=== PATIENT | female | born 1965 | race Caucasian/White ===

== ENCOUNTER 2016-08-05 16:15 | Emergency (ER) | payer SELFPAY ==
[2016-08-05] MEDS ORDERED: TORAdol 30 mg Injection ONE (16:51)
--- NOTE | 2016-08-05 16:55 | ERPHSYRPT ---
- History of Present Illness Time Seen by Provider: 08/05/16 16:32 Source: patient Patient Subjective Stated Complaint: pt fell at home and hit head on foot stool. pt c/o pain to the back of the head and neck. Triage Nursing Assessment: pt walked into the er. skin is pink warm and dry. respirations even and nonlabored. neck is tender to touch, no bruises nor swelling noted. Physician History: CC: headache hx: 50 y/o patient tripped at home on the dog and fell back hitting her head on a step stool. No LOC. She has headache, photophobia, neck pain gradually worsening despite APAP/motrin. She has remote hx of migraines formerly treated with phenergan/dilaudid. Prior hysterectomy. She feels like when migraines occured. This started with injury. Occurred: this afternoon Allergies/Adverse Reactions: Penicillins Adverse Reaction (Severe, Verified 11/13/15 15:24) Tightness of Throat Hx Tetanus, Diphtheria Vaccination/Date Given: Yes Hx Influenza Vaccination/Date Given: No Hx Pneumococcal Vaccination/Date Given: No Immunizations Up to Date: Yes - Review of Systems Constitutional: No Symptoms Eyes: Photophobia, No Vision Changes Respiratory: No Cough Cardiac: No Chest Pain Abdominal/Gastrointestinal: Nausea, No Abdominal Pain, No Vomiting Musculoskeletal: Neck Pain, Fall, No Back Pain Skin: No Rash Neurological: Headache, No Focal Weakness, No Parasthesia All Other Systems: Reviewed and Negative - Past Medical History Pertinent Past Medical History: No Neurological History: No Pertinent History ENT History: No Pertinent History Cardiac History: Hypertension Respiratory History: No Pertinent History Endocrine Medical History: No Pertinent History Musculoskeletal History: Arthritis GI Medical History: No Pertinent History History: No Pertinent History Psycho-Social History: No Pertinent History Female Reproductive Disorders: No Pertinent History - Past Surgical History Past Surgical History: Yes Neuro Surgical History: No Pertinent History Cardiac: No Pertinent History Respiratory: No Pertinent History Gastrointestinal: Cholecystectomy Female Surgical History: Hysterectomy Other Surgical History: Hernia surgery, - Social History Smoking Status: Never smoker Exposure to second hand smoke: No Drug Use: none Patient Lives Alone: Yes - Nursing Vital Signs Nursing Vital Signs: Initial Vital Signs Temperature 98.9 F Pulse Rate 78 Respiratory Rate 20 Blood Pressure [Right Arm] 153/96 Pain Intensity 7 - Kumar Coma Score Best Eye Response ([place]): (4) open spontaneously Best Verbal Response (Kumar): (5) oriented Best Motor Response (Kumar): (6) obeys commands [place] Total: 15 - Physical Exam General Appearance: alert Head Injury: no evidence of injury Eye Exam: PERRL/EOMI ENT Exam: airway nml Neck Exam: mid-line tenderness (high) Respiratory/Chest Exam: normal breath sounds Cardiovascular Exam: regular rate/rhythm Gastrointestinal Exam: soft, No tenderness, No distention Extremity Exam: normal inspection, normal range of motion Neurologic Exam: alert, oriented x 3, cooperative, debt collector II-XII nml as tested, sensation nml, No motor deficits Skin Exam: warm, dry, No rash SpO2 Interpretation: normal SpO2: 98 Oxygen Delivery: Room Air - Course Nursing assessment & vital signs reviewed: Yes - CT Exams head,cervical CT Interpretation: Tele-radiologist Report, No Fracture, No/Intracranial Hemorrhag Ordered Tests: Active Orders 24 hr Category Date Time Status Cervical Collar Application STAT Care 08/05/16 16:33 Active CERVICAL SPINE WO CONTRAST [CT] Stat Exams 08/05/16 16:44 Completed HEAD WITHOUT CONTRAST [CT] Stat Exams 08/05/16 16:44 Completed Medication Summary Discontinued Medications Generic Name Dose Route Start Last Admin Trade Name Freq PRN Reason Stop Dose Admin Ketorolac Tromethamine 60 mg 08/05/16 16:43 08/05/16 17:09 Toradol 30 Mg Injection IM 08/05/16 16:44 Not Given STAT ONE Ketorolac Tromethamine Confirm 08/05/16 16:51 Toradol 30 Mg Injection Administered 08/05/16 16:52 Dose 60 mg .ROUTE .[employer]-MED ONE - Progress Progress Note: 08/05/16 17:13 She was offered reglan and benadryl. She wanted to try toradol. Then told nurse she was allergic to toradol. Offered phenergan IM. She declined. Await CT. 08/05/16 17:23 Pt wanted c-collar off. Discussed NSAID treatment. Will also Rx norflex. She inquired about ultram or dilaudid but explained these are not indicated. Counseled pt/family regarding: diagnosis, need for follow-up, rad results - Departure Time of Disposition: 17:24 Departure Disposition: Home Clinical Impression: Fall, Cervical strain, Head contusion Condition: Stable Critical Care Time: No Referrals: DOCTOR,NO FAMILY [Primary Care Provider] - Instructions: Closed Head Injury, Cervical Strain Additional Instructions: CERVICAL (NECK) STRAIN 1. Take medication as prescribed for discomfort. 2. Use warm compresses for 1-2 days on the affected area. 3. Follow up with your family physician if not improved in 2-3 days. 4. You should call your family physician or return to the emergency department for any numbness, tingling, or weakness of the arms or legs. HEAD INJURY 1. A responsible person should observe the patient at home for 24 hours. 2. If any of the following signs or symptoms are observed or occur, call your family physician or return to the emergency department: A. Behavior change B. Persistent vomiting C. Unequal pupils D. Increasing drowsiness E. Difficulty in arousing the patient F. Severe headache G. Lump on head increasing in size Rx motrin=ibuprofen Rx norflex- no driving or operating machinery. Follow up with a family doctor. Return for problems or concerns. Prescriptions: Ibuprofen 600 mg PO Q6H PRN PRN #20 tablet PRN Reason: Pain Orphenadrine Citrate 100 mg [Norflex 100 MG Tablet] 1 tab PO BID #10 tab
[2016-08-05] MEDS: TORAdol 30 mg Injection IM ONE ×2 (17:02→17:09)
[2016-08-05 17:06] VITALS: PULSE 78
[2016-08-05 17:13] VITALS: O2SAT 98
--- NOTE | 2016-08-05 17:18 | XRAY ---
Indication: Pain and posterior head injury following fall. Multiple contiguous axial images obtained through the head without contrast. Comparison: None Normal appearing brain parenchyma, ventricles, and bony calvarium. Visualized paranasal sinuses and mastoid air cells are pneumatized and clear. Impression: Normal CT head without contrast exam. CTDI 48.76
--- NOTE | 2016-08-05 17:21 | XRAY ---
Indication: Pain and head injury following fall. Multiple contiguous axial images obtained through the cervical spine. Sagittal and coronal reformatted images obtained. Comparison: None Axial images negative for acute fracture, suspicious bony lesions, or spinal canal stenosis. Mild C5-C6 degenerative endplate spurring. Minimal multilevel bilateral degenerative facet arthropathy. Sagittal and coronal reformatted images demonstrates mild lordotic reversal, positional versus paraspinal muscular spasm. Disc spaces maintained. No acute compression fracture, subluxation, or jump facet. Normal-appearing craniocervical junction. Visualized noncontrasted soft tissues demonstrates scattered centimeter/subcentimeter cervical nodes. Base of the brain and lung apices unremarkable. Impression: 1. Negative for acute fracture/subluxation. 2. Lordotic reversal, either positional versus paraspinal spasm. 3. C5-C6 degenerative disc disease. CTDI 59.60
[2016-08-05 17:36] VITALS: BP 176/101
== END 2016-08-05 17:37 | disposition home or self-care (01) ==
LOC: ED 16:15
DX: S16.1XXA Strain of muscle, fascia and tendon at neck level, initial encounter (principal); S00.93XA Contusion of unspecified part of head, initial encounter; R11.0 Nausea; R51 Headache; M54.2 Cervicalgia; I10 Essential (primary) hypertension; W01.198A Fall on same level from slipping, tripping and stumbling with subsequent striking against other object, initial encounter
CPT/HCPCS: 70450; 72125; 99283; J1885; L0172

== ENCOUNTER 2019-05-28 18:37 | Emergency (ER) | payer MEDICARE, OTHER ==
[2019-05-28 18:54] VITALS: O2SAT 98
[2019-05-28] MEDS ORDERED: Hydromorphone 1 mg/ml Ampule IM ONE (19:19)
[2019-05-28] MEDS ORDERED: ZOFRAN ODT 4 MG PO ONE (19:20)
--- NOTE | 2019-05-28 19:37 | ERPHSYRPT ---
- History of Present Illness Time Seen by Provider: 05/28/19 19:10 Source: patient Exam Limitations: no limitations Patient Subjective Stated Complaint: pt here for chronic right knee pain and recent right foot pain, she states she fell 2 weeks ago and hurt her right foot and has been cec[place] x2 and placed in a walking boot, pt sees pain dr for chronic pain and states meds are not helping Triage Nursing Assessment: pt alert, walked in with walker. walking boot to right leg resp easy skin w/d/p Physician History: 53 y/o morbidly obese white female presents with chronic right knee and post ankle pain. 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 pts current pain regimen of norco and ice pack not helping much. she was wondering if pt can receive a one time injection of strong pain medication in order to get her through the night until she can discuss other pain control options with her pain specialist. pt reports xray of right knee and ankle reveals no acute fx or dislocation Method of Injury: twisted Occurred: other (chronic) Quality: aching Severity of Pain-Max: moderate Severity of Pain-Current: moderate Lower Extremities Pain: thigh: right, ankle: right Modifying Factors: Improves With: movement Associated Symptoms: other (hurts to bear weight) Allergies/Adverse Reactions: ceftriaxone [From Rocephin] Allergy (Verified 05/28/19 18:54) vancomycin Allergy (Verified 05/28/19 18:54) Penicillins Adverse Reaction (Severe, Verified 11/13/15 15:24) Tightness of Throat Home Medications: Amlodipine Besylate 1 ea DAILY 05/28/19 [History] Empagliflozin [Jardiance] 1 ea DAILY 05/28/19 [History] Hydrocodone/Acetaminophen [Hydrocodone-Acetamin 5-325 mg] 1 ea BID 05/28/19 [ History] lisinopriL [Lisinopril] 1 ea DAILY 05/28/19 [History] Hx Tetanus, Diphtheria Vaccination/Date Given: Yes Hx Influenza Vaccination/Date Given: Yes Hx Pneumococcal Vaccination/Date Given: Yes Immunizations Up to Date: Yes - Review of Systems Constitutional: No Symptoms Eyes: No Symptoms Ears, Nose, & Throat: No Symptoms Respiratory: No Symptoms Cardiac: No Symptoms Abdominal/Gastrointestinal: No Symptoms Genitourinary Symptoms: No Symptoms Musculoskeletal: No Symptoms, Other (chronic right knee and right ankle) Skin: No Symptoms Neurological: No Symptoms Psychological: No Symptoms Endocrine: No Symptoms Hematologic/Lymphatic: No Symptoms Immunological/Allergic: No Symptoms All Other Systems: Reviewed and Negative - Past Medical History Pertinent Past Medical History: Yes Neurological History: No Pertinent History ENT History: No Pertinent History Cardiac History: Hypertension Respiratory History: No Pertinent History Endocrine Medical History: Diabetes Type II Musculoskeletal History: Arthritis GI Medical History: No Pertinent History History: No Pertinent History Psycho-Social History: No Pertinent History Female Reproductive Disorders: No Pertinent History Other Medical History: chronic pain - Past Surgical History Past Surgical History: Yes Neuro Surgical History: No Pertinent History Cardiac: No Pertinent History Respiratory: No Pertinent History Gastrointestinal: Cholecystectomy Musculoskeletal: Orthopedic Surgery Female Surgical History: Hysterectomy Other Surgical History: Hernia surgery,carpal tunnel,knee bilat - Social History Smoking Status: Never smoker Exposure to second hand smoke: No Drug Use: none Patient Lives Alone: Yes - Female History Hx Last Menstrual Period: post Hx Now: No - Nursing Vital Signs Nursing Vital Signs: Initial Vital Signs Temperature 97.4 F 05/28/19 18:46 Pulse Rate 93 H 05/28/19 18:46 Respiratory Rate 16 05/28/19 18:46 Blood Pressure 180/80 05/28/19 18:46 O2 Sat by Pulse Oximetry 98 05/28/19 18:46 Pain Scale Pain Intensity 8 - Physical Exam General Appearance: no apparent distress, alert, anxiety Eyes, Ears, Nose, Throat Exam: normal ENT inspection, moist mucous membranes Neck Exam: normal inspection, non-tender, supple, full range of motion Cardiovascular/Respiratory Exam: chest non-tender Gastrointestinal/Abdominal Exam: non-tender Back Exam: normal inspection, normal range of motion, No CVA tenderness, No vertebral tenderness Hips Exam: bilateral: non-tender, normal inspection, normal range of motion, no evidence of injury Legs Exam: bilateral leg: non-tender, normal inspection, normal range of motion , no evidence of injury Knees Exam: bilateral knee: non-tender, normal inspection, normal range of motion, no evidence of injury Ankle Exam: bilateral ankle: non-tender, normal inspection, normal range of motion, no evidence of injury Foot Exam: bilateral foot: non-tender, normal inspection, normal range of motion , no evidence of injury Neuro/Tendon Exam: normal sensation, normal motor functions, normal tendon functions Mental Status Exam: alert, oriented x 3, cooperative Skin Exam: normal color, warm, dry SpO2 Interpretation: normal SpO2: 98 O2 Delivery: Room Air - Course Nursing assessment & vital signs reviewed: Yes Ordered Tests: Medication Summary Discontinued Medications Generic Name Dose Route Start Last Admin Trade Name Miriam PRN Reason Stop Dose Admin Hydromorphone HCl 1 mg 05/28/19 19:19 Hydromorphone 1 Mg/Ml Ampule IM 05/28/19 19:20 STAT ONE Ondansetron HCl 4 mg 05/28/19 19:20 Zofran Odt 4 Mg PO 05/28/19 19:21 STAT ONE - Progress Progress: improved Counseled pt/family regarding: diagnosis, need for follow-up - Departure Departure Disposition: Home Clinical Impression: Knee pain, right, Ankle pain, right Condition: Stable Critical Care Time: No Referrals: KENDALL RAMOS MD [Primary Care Provider] - Additional Instructions: follow up with primary doctor, pain specialist and plastic sheeting cutter for further management
[2019-05-28] MEDS ORDERED: ZOFRAN ODT 4 MG ONE (19:50)
[2019-05-28] MEDS ORDERED: Hydromorphone 1 mg/ml Ampule ONE (19:51)
[2019-05-28 20:18] VITALS: BP 172/72; PULSE 89
== END 2019-05-28 20:15 | disposition home or self-care (01) ==
LOC: ED 18:37
DX: M25.561 Pain in right knee (principal); M25.571 Pain in right ankle and joints of right foot; G89.29 Other chronic pain; F45.42 Pain disorder with related psychological factors
CPT/HCPCS: 96372; 99283; J1170; Q0162

== ENCOUNTER 2021-03-11 07:16 | Day surgery (SDC) | payer MEDICARE ==
[2021-03-11] MEDS ORDERED: ORTHOVISC IU ONE (07:17)
[2021-03-11] MEDS ORDERED: DIPRIVAN 200 MG/20 ML IV ONE (08:42)
[2021-03-11] MEDS ORDERED: Lactated Ringers 1,000 ML IV ONE (09:55)
--- NOTE | 2021-03-11 09:58 | XRAY ---
Indication: Right knee injection NASIM. Intraoperative fluoroscopy provided for 9 seconds. Single digital spot image submitted for interpretation demonstrates needle tip projecting over the right femur intercondylar notch. Small amount of contrast injected for needle tip placement. Correlate with intraoperative findings/report.
--- NOTE | 2021-03-11 10:07 | XRAY ---
9 seconds fluoroscopy time in surgery for intra-articular injection of the right knee.
== END 2021-03-11 09:11 | disposition home or self-care (01) ==
LOC: SDC-PAIN 07:16
PROVIDERS: ATTEND Psychiatry & Neurology Pain Medicine
DX: M17.11 Unilateral primary osteoarthritis, right knee (principal); E11.9 Type 2 diabetes mellitus without complications; I10 Essential (primary) hypertension; F32.9 Major depressive disorder, single episode, unspecified; Z79.899 Other long term (current) drug therapy
CPT/HCPCS: 20610; 73560; 77002; 82947; J2704; Q9966; J7324

== ENCOUNTER 2021-03-18 10:00 | Day surgery (SDC) | payer MEDICARE ==
[2021-03-18] MEDS ORDERED: ORTHOVISC IU ONE (10:01)
[2021-03-18] MEDS ORDERED: LIDOCAINE HCL 2% 100 MG/5 ML IJ ONE (10:01)
[2021-03-18] MEDS ORDERED: Ketamine HCl 50 MG/ML IV ONE (10:01)
[2021-03-18] MEDS ORDERED: DIPRIVAN 200 MG/20 ML IV ONE (10:44)
[2021-03-18] MEDS ORDERED: Lactated Ringers 1,000 ML IV ONE (11:38)
--- NOTE | 2021-03-18 12:39 | XRAY ---
11 seconds fluoroscopy time in surgery for intra-articular injection of the right hip.
--- NOTE | 2021-03-18 12:47 | XRAY ---
Indication: Right knee injection. Intraoperative fluoroscopy provided for 11 seconds. Single digital spot image submitted for interpretation demonstrates needle tip projecting over the right femur intercondylar notch. Small amount of contrast injected for needle tip placement. Correlate with intraoperative findings/report.
== END 2021-03-18 11:15 | disposition home or self-care (01) ==
LOC: SDC-PAIN 10:00
PROVIDERS: ATTEND Psychiatry & Neurology Pain Medicine
DX: M17.11 Unilateral primary osteoarthritis, right knee (principal); Z79.891 Long term (current) use of opiate analgesic; E11.8 Type 2 diabetes mellitus with unspecified complications; Z79.84 Long term (current) use of oral hypoglycemic drugs; Z79.4 Long term (current) use of insulin
CPT/HCPCS: 20610; 73560; 77002; 82947; J2704; Q9966; J7324

== ENCOUNTER 2021-04-15 10:35 | Day surgery (SDC) | payer MEDICARE ==
[2021-04-15] MEDS ORDERED: ORTHOVISC IU ONE (10:36)
[2021-04-15] MEDS ORDERED: DIPRIVAN 200 MG/20 ML IV ONE (12:51)
[2021-04-15] MEDS ORDERED: Lactated Ringers 1,000 ML IV ONE (13:01)
--- NOTE | 2021-04-15 14:49 | XRAY ---
Indication: Right knee injection. Intraoperative fluoroscopy provided for 6 seconds. Single digital spot image submitted for interpretation demonstrates needle tip projecting over the right femur intercondylar notch. Small amount of contrast injected for needle tip placement. Correlate with intraoperative findings/report.
--- NOTE | 2021-04-15 17:02 | XRAY ---
6 seconds fluoroscopy time in surgery for right knee injection.
== END 2021-04-15 13:15 | disposition home or self-care (01) ==
LOC: SDC-PAIN 10:35
PROVIDERS: ATTEND Psychiatry & Neurology Pain Medicine
DX: M17.11 Unilateral primary osteoarthritis, right knee (principal); E11.9 Type 2 diabetes mellitus without complications; I10 Essential (primary) hypertension; Z79.899 Other long term (current) drug therapy
CPT/HCPCS: 20610; 73560; 77002; 82947; J2704; Q9966; J7324

== ENCOUNTER 2021-05-20 09:25 | Day surgery (SDC) | payer MEDICARE ==
[2021-05-20] MEDS ORDERED: Depo-Medrol 40 MG/ML IM ONE (09:26)
[2021-05-20] MEDS ORDERED: BUPIVACAINE 0.5% VIAL IJ ONE (09:26)
[2021-05-20] MEDS ORDERED: Lactated Ringers 1,000 ML IV ONE (11:01)
[2021-05-20] MEDS ORDERED: DIPRIVAN 200 MG/20 ML IV ONE (11:17)
--- NOTE | 2021-05-20 13:54 | XRAY ---
Indication: Right knee injection. Intraoperative fluoroscopy provided for 7 seconds. Single digital spot image submitted for interpretation demonstrates needle tip projecting over the right femur intercondylar notch. Small amount of contrast injected for needle tip placement. Correlate with intraoperative findings/report.
--- NOTE | 2021-05-20 13:58 | XRAY ---
7 seconds of fluoroscopy was used in surgery for a right intra-articular knee injection.
== END 2021-05-20 11:42 | disposition home or self-care (01) ==
LOC: SDC-PAIN 09:25
PROVIDERS: ATTEND Psychiatry & Neurology Pain Medicine
DX: M17.11 Unilateral primary osteoarthritis, right knee (principal); E11.9 Type 2 diabetes mellitus without complications; I10 Essential (primary) hypertension; Z79.899 Other long term (current) drug therapy
CPT/HCPCS: 20610; 73560; 77002; 82947; J1030; J2704; Q9966

== ENCOUNTER 2021-10-21 08:34 | Day surgery (SDC) | payer MEDICARE ==
[2021-10-21] MEDS ORDERED: ORTHOVISC IU ONE (08:35)
[2021-10-21] MEDS ORDERED: DIPRIVAN 200 MG/20 ML IV ONE (09:44)
[2021-10-21] MEDS ORDERED: Lactated Ringers 1,000 ML IV ONE (10:04)
--- NOTE | 2021-10-21 10:49 | XRAY ---
6 seconds fluoroscopy time in surgery for intra-articular injection of the right knee.
== END 2021-10-21 11:08 | disposition home or self-care (01) ==
LOC: SDC-PAIN 08:34
PROVIDERS: ATTEND Psychiatry & Neurology Pain Medicine
DX: M17.11 Unilateral primary osteoarthritis, right knee (principal); E11.9 Type 2 diabetes mellitus without complications; Z79.899 Other long term (current) drug therapy
CPT/HCPCS: 20610; 73560; 77002; 82947; J2704; Q9966; J7324

== ENCOUNTER 2021-10-28 08:46 | Day surgery (SDC) | payer MEDICARE ==
[2021-10-28] MEDS ORDERED: ORTHOVISC IU ONE (08:47)
[2021-10-28] MEDS ORDERED: DIPRIVAN 200 MG/20 ML IV ONE (10:10)
[2021-10-28] MEDS ORDERED: Lactated Ringers 1,000 ML IV ONE (11:33)
--- NOTE | 2021-10-28 13:48 | XRAY ---
Indication: Intra-articular right knee injection. Intraoperative fluoroscopy provided for 4 seconds. Single spot image submitted for interpetation demonstrates needle tip projecting over the right intercondylar notch. Small amount of contrast injected for needle tip placement. Correlate with intraoperative findings/report.
--- NOTE | 2021-10-29 18:30 | XRAY ---
4 seconds fluoroscopy time in surgery for intra-articular injection of the right knee.
== END 2021-10-28 10:32 | disposition home or self-care (01) ==
LOC: SDC-PAIN 08:46
PROVIDERS: ATTEND Psychiatry & Neurology Pain Medicine
DX: M17.11 Unilateral primary osteoarthritis, right knee (principal); E11.9 Type 2 diabetes mellitus without complications; Z79.899 Other long term (current) drug therapy
CPT/HCPCS: 20610; 73560; 77002; 82947; J2704; Q9966; J7324

== ENCOUNTER 2021-11-04 06:56 | Day surgery (SDC) | payer MEDICARE ==
[2021-11-04] MEDS ORDERED: ORTHOVISC IU ONE (06:57)
[2021-11-04] MEDS ORDERED: DIPRIVAN 200 MG/20 ML IV ONE (08:31)
[2021-11-04] MEDS ORDERED: Lactated Ringers 1,000 ML IV ONE (10:14)
--- NOTE | 2021-11-04 10:55 | XRAY ---
Indication: Right injection. Intraoperative fluoroscopy provided for 8 seconds. Single digital spot image submitted for interpretation demonstrates needle tip projecting over the right femur intercondylar notch. Small amount of contrast injected for needle tip placement. Correlate with intraoperative findings/report.
--- NOTE | 2021-11-04 11:36 | XRAY ---
8 seconds fluoroscopy time in surgery for intra-articular injection of the right knee.
== END 2021-11-04 08:48 | disposition home or self-care (01) ==
LOC: SDC-PAIN 06:56
PROVIDERS: ATTEND Psychiatry & Neurology Pain Medicine
DX: M17.11 Unilateral primary osteoarthritis, right knee (principal); E11.9 Type 2 diabetes mellitus without complications; Z79.899 Other long term (current) drug therapy
CPT/HCPCS: 20610; 73560; 77002; 82947; J2704; Q9966; J7324

== ENCOUNTER 2022-07-14 10:40 | Day surgery (SDC) | payer MEDICARE ==
[2022-07-14] MEDS ORDERED: BUPIVACAINE 0.5% VIAL IJ ONE (10:41)
[2022-07-14] MEDS ORDERED: Depo-Medrol 40 MG/ML IM ONE (10:41)
[2022-07-14] MEDS ORDERED: DIPRIVAN 200 MG/20 ML IV ONE (12:36)
--- NOTE | 2022-07-14 13:30 | XRAY ---
Indication: Left knee injection. Intraoperative fluoroscopy provided for 6 seconds. Single digital spot image submitted for interpretation demonstrates needle tip projecting over the left femur intercondylar notch. Small amount of contrast injected for needle tip placement. Correlate with intraoperative findings/report.
--- NOTE | 2022-07-14 13:31 | XRAY ---
Indication: Right knee injection. Intraoperative fluoroscopy provided for 13 seconds. Single digital spot image submitted for interpretation demonstrates needle tip projecting over the right femur intercondylar notch. Small amount of contrast injected for needle tip placement. Correlate with intraoperative findings/report.
--- NOTE | 2022-07-14 13:33 | XRAY ---
13 seconds of fluoroscopy was used in surgery for a right intra-articular knee injection.
--- NOTE | 2022-07-14 13:36 | XRAY ---
6 seconds of fluoroscopy was used in surgery for a left intra-articular knee injection.
[2022-07-14] MEDS ORDERED: Lactated Ringers 1,000 ML IV ONE (15:28)
== END 2022-07-14 13:18 | disposition home or self-care (01) ==
LOC: SDC-PAIN 10:40
PROVIDERS: ATTEND Psychiatry & Neurology Pain Medicine
DX: M17.0 Bilateral primary osteoarthritis of knee (principal); E11.9 Type 2 diabetes mellitus without complications; Z79.899 Other long term (current) drug therapy
CPT/HCPCS: 20610; 73560; 77002; 82947; J1030; J2704; Q9966

== ENCOUNTER 2022-10-27 10:42 | Day surgery (SDC) | payer MEDICARE ==
[2022-10-27] MEDS ORDERED: SYNVISC 16 MG/2 ML SYRINGE IU ONE (10:43)
[2022-10-27] MEDS ORDERED: DIPRIVAN 200 MG/20 ML IV ONE (12:26)
[2022-10-27] MEDS ORDERED: Lactated Ringers 1,000 ML IV ONE (13:36)
--- NOTE | 2022-10-27 13:42 | XRAY ---
Indication: Right knee injection Intraoperative fluoroscopy provided for 7 seconds. Single digital spot image submitted for interpretation demonstrates needle tip projecting over the right femur intercondylar notch. Small amount of contrast injected for needle tip placement. Correlate with intraoperative findings/report.
--- NOTE | 2022-10-27 13:42 | XRAY ---
Indication: Left knee injection Intraoperative fluoroscopy provided for 3 seconds. Single digital spot image submitted for interpretation demonstrates needle tip projecting over the left femur intercondylar notch. Small amount of contrast injected for needle tip placement. Correlate with intraoperative findings/report.
--- NOTE | 2022-10-27 13:56 | XRAY ---
7 seconds of fluoroscopy was used in surgery for a right intra-articular knee injection.
--- NOTE | 2022-10-27 13:56 | XRAY ---
3 seconds of fluoroscopy was used in surgery for a left intra-articular knee injection.
== END 2022-10-27 13:00 | disposition home or self-care (01) ==
LOC: SDC-PAIN 10:42
PROVIDERS: ATTEND Psychiatry & Neurology Pain Medicine
DX: M17.0 Bilateral primary osteoarthritis of knee (principal); E11.9 Type 2 diabetes mellitus without complications; Z79.899 Other long term (current) drug therapy
CPT/HCPCS: 20610; 73560; 77002; 82947; J2704; J7325; Q9966

== ENCOUNTER 2022-11-03 10:41 | Day surgery (SDC) | payer MEDICARE ==
[2022-11-03] MEDS ORDERED: SYNVISC 16 MG/2 ML SYRINGE IU ONE (10:42)
[2022-11-03] MEDS ORDERED: DIPRIVAN 200 MG/20 ML IV ONE (12:52)
--- NOTE | 2022-11-03 13:49 | XRAY ---
Indication: Left knee injection. Intraoperative fluoroscopy provided for 3 seconds. Single digital spot image submitted for interpretation demonstrates needle tip projecting over the left femur intercondylar notch. Small amount of contrast injected for needle tip placement. Correlate with intraoperative findings/report.
[2022-11-03] MEDS ORDERED: Lactated Ringers 1,000 ML IV ONE (14:34)
--- NOTE | 2022-11-03 15:13 | XRAY ---
7 seconds of fluoroscopy was used in surgery for a right intra-articular knee injection.
--- NOTE | 2022-11-03 15:13 | XRAY ---
3 seconds of fluoroscopy was used in surgery for a left intra-articular knee injection.
== END 2022-11-03 13:23 | disposition home or self-care (01) ==
LOC: SDC-PAIN 10:41
PROVIDERS: ATTEND Psychiatry & Neurology Pain Medicine
DX: M17.0 Bilateral primary osteoarthritis of knee (principal); E11.9 Type 2 diabetes mellitus without complications; Z79.899 Other long term (current) drug therapy
CPT/HCPCS: 20610; 73560; 77002; 82947; J2704; J7325; Q9966

== ENCOUNTER 2023-02-17 08:09 | Day surgery (SDC) | payer MEDICARE ==
[2023-02-17] MEDS ORDERED: Depo-Medrol 40 MG/ML IM ONE (08:10)
[2023-02-17] MEDS ORDERED: BUPIVACAINE 0.5% VIAL IJ ONE (08:10)
[2023-02-17] MEDS ORDERED: Lactated Ringers 1,000 ML IV ONE (09:17)
[2023-02-17] MEDS ORDERED: DIPRIVAN 200 MG/20 ML IV ONE (09:40)
--- NOTE | 2023-02-17 11:02 | XRAY ---
Indication: Right knee and pes anserine bursa injection. Intraoperative fluoroscopy provided for 6 seconds. Single digital spot image submitted for interpretation demonstrates needle tip projecting over the right femur intercondylar notch. Small amount of contrast injected for needle tip placement. Correlate with intraoperative findings/report.
--- NOTE | 2023-02-17 12:32 | XRAY ---
6 seconds of fluoroscopy was used in surgery for a right intra-articular knee and pes anserine bursa injection.
== END 2023-02-17 10:10 | disposition home or self-care (01) ==
LOC: SDC-PAIN 08:09
PROVIDERS: ATTEND Psychiatry & Neurology Pain Medicine
DX: M17.11 Unilateral primary osteoarthritis, right knee (principal); E11.9 Type 2 diabetes mellitus without complications
CPT/HCPCS: 20610; 73560; 77002; 82947; J1030; J2704; Q9966

== ENCOUNTER 2023-08-03 09:40 | Day surgery (SDC) | payer MEDICARE ==
[2023-08-03] MEDS ORDERED: Depo-Medrol 40 MG/ML IM ONE (09:41)
[2023-08-03] MEDS ORDERED: BUPIVACAINE 0.5% VIAL IJ ONE (09:41)
[2023-08-03] MEDS ORDERED: DIPRIVAN 200 MG/20 ML IV ONE (10:44)
[2023-08-03] MEDS ORDERED: Lactated Ringers 1,000 ML IV ONE (11:42)
--- NOTE | 2023-08-03 11:44 | XRAY ---
8 seconds of fluoroscopy was used in surgery for a right intra-articular knee and pes anserine bursa injection.
--- NOTE | 2023-08-03 11:44 | XRAY ---
Indication: Right knee injection. Intraoperative fluoroscopy provided for 8 seconds. Single digital spot image submitted for interpretation demonstrates needle tip projecting over right femur intercondylar notch. Small amount of contrast injected for needle tip placement. Correlate with intraoperative findings/report.
== END 2023-08-03 11:12 | disposition home or self-care (01) ==
LOC: SDC-PAIN 09:40
PROVIDERS: ATTEND Psychiatry & Neurology Pain Medicine
DX: M17.11 Unilateral primary osteoarthritis, right knee (principal); E11.9 Type 2 diabetes mellitus without complications
CPT/HCPCS: 20610; 73560; 77002; 82947; J1010; J2704; Q9966; J1030

== ENCOUNTER 2024-01-11 08:21 | Day surgery (SDC) | payer MEDICARE ==
[2024-01-11] MEDS ORDERED: LIDOCAINE HCL 1% 50 MG/5 ML VL PF IJ ONE (08:22)
[2024-01-11] MEDS ORDERED: GELSYN-3 IU ONE (08:22)
[2024-01-11] MEDS ORDERED: DIPRIVAN 200 MG/20 ML IV ONE (10:08)
--- NOTE | 2024-01-11 12:03 | XRAY ---
Indication: Right knee injection. Intraoperative fluoroscopy provided for 9 seconds. Single digital spot images submitted for interpretation demonstrates needle tip projecting over right femur intercondylar notch. Small amount of contrast was injected for needle tip placement. Correlate with intraoperative findings/report.
--- NOTE | 2024-01-11 12:05 | XRAY ---
9 seconds of fluoroscopy was used in surgery for a right intra-articular knee injection.
[2024-01-11] MEDS ORDERED: Lactated Ringers 1,000 ML IV ONE (14:17)
== END 2024-01-11 10:42 ==
LOC: SDC-PAIN 08:21
PROVIDERS: ATTEND Psychiatry & Neurology Pain Medicine
DX: M17.11 Unilateral primary osteoarthritis, right knee (principal); E11.9 Type 2 diabetes mellitus without complications
CPT/HCPCS: 20610; 73560; 77002; 82947; J2001; J2704; J7328; Q9966

== ENCOUNTER 2024-01-18 08:34 | Day surgery (SDC) | payer MEDICARE ==
[2024-01-18] MEDS ORDERED: GELSYN-3 IU ONE (08:35)
[2024-01-18] MEDS ORDERED: DIPRIVAN 200 MG/20 ML IV ONE (10:16)
[2024-01-18] MEDS ORDERED: Lactated Ringers 1,000 ML IV ONE (13:45)
--- NOTE | 2024-01-18 20:12 | XRAY ---
Indication: Right knee injection Intraoperative fluoroscopy provided for 5 seconds. Single digital spot image submitted for interpretation demonstrates needle tip projecting over the right femur intercondylar notch. Small amount of contrast injected for needle tip placement. Correlate with intraoperative findings/report.
--- NOTE | 2024-01-18 20:20 | XRAY ---
5 seconds of fluoroscopy was used in surgery for a right intra-articular knee injection.
== END 2024-01-18 10:47 ==
LOC: SDC-PAIN 08:34
PROVIDERS: ATTEND Psychiatry & Neurology Pain Medicine
DX: M17.11 Unilateral primary osteoarthritis, right knee (principal); E11.9 Type 2 diabetes mellitus without complications
CPT/HCPCS: 20610; 73560; 77002; 82947; J2704; J7328; Q9966

== ENCOUNTER 2024-01-25 08:39 | Day surgery (SDC) | payer MEDICARE ==
[2024-01-25] MEDS ORDERED: Depo-Medrol 40 MG/ML IM ONE (08:40)
[2024-01-25] MEDS ORDERED: BUPIVACAINE 0.5% VIAL IJ ONE (08:40)
[2024-01-25] MEDS ORDERED: LIDOCAINE HCL 1% AMPUL 5 ML IJ ONE (08:40)
[2024-01-25] MEDS ORDERED: DIPRIVAN 200 MG/20 ML IV ONE (09:36)
[2024-01-25] MEDS ORDERED: Lactated Ringers 1,000 ML IV ONE (09:55)
[2024-01-25] MEDS ORDERED: MORPHINE SULFATE 2 MG INJ ONE ×2 (10:10→10:23)
--- NOTE | 2024-01-25 13:08 | XRAY ---
6 seconds of fluoroscopy was used in surgery for a right intra-articular knee injection.
== END 2024-01-25 10:44 | disposition home or self-care (01) ==
LOC: SDC-PAIN 08:39
PROVIDERS: ATTEND Psychiatry & Neurology Pain Medicine
DX: M17.11 Unilateral primary osteoarthritis, right knee (principal); E11.9 Type 2 diabetes mellitus without complications; M70.51 Other bursitis of knee, right knee
CPT/HCPCS: 20610; 73560; 77002; 82947; J2270; J2704; Q9966

== ENCOUNTER 2024-07-18 11:39 | Day surgery (SDC) | payer MEDICARE ==
[2024-07-18] MEDS ORDERED: GELSYN-3 IU ONE (11:40)
[2024-07-18] MEDS ORDERED: propofoL IV ONE (13:50)
--- NOTE | 2024-07-18 16:33 | XRAY ---
Indication: Right knee injection. Intraoperative fluoroscopy provided for 6 seconds. Single digital spot image submitted for interpretation demonstrates needle tip projecting over right femur intercondylar notch. Small amount of contrast injected for needle tip placement. Correlate with intraoperative findings/report.
--- NOTE | 2024-07-18 17:09 | XRAY ---
6 seconds of fluoroscopy was used in surgery for a right intra-articular knee injection.
== END 2024-07-18 14:21 | disposition home or self-care (01) ==
LOC: SDC-PAIN 11:39
PROVIDERS: ATTEND Psychiatry & Neurology Pain Medicine
DX: M17.11 Unilateral primary osteoarthritis, right knee (principal); E11.9 Type 2 diabetes mellitus without complications
CPT/HCPCS: 20610; 73560; 77002; 82947; J2704; J7328; Q9966

== ENCOUNTER 2024-07-25 09:06 | Day surgery (SDC) | payer MEDICARE ==
[2024-07-25] MEDS ORDERED: GELSYN-3 IU ONE (09:07)
[2024-07-25] MEDS ORDERED: propofoL IV ONE (11:02)
--- NOTE | 2024-07-25 13:56 | XRAY ---
8 seconds of fluoroscopy was used in surgery for a right intra-articular knee injection.
== END 2024-07-25 11:42 | disposition home or self-care (01) ==
LOC: SDC-PAIN 09:06
PROVIDERS: ATTEND Psychiatry & Neurology Pain Medicine
DX: M17.11 Unilateral primary osteoarthritis, right knee (principal); E11.9 Type 2 diabetes mellitus without complications
CPT/HCPCS: 20610; 73560; 77002; 82947; J2704; J7328; Q9966

== ENCOUNTER 2024-08-08 10:46 | Day surgery (SDC) | payer MEDICARE ==
[2024-08-08] MEDS ORDERED: Depo-Medrol 40 MG/ML IM ONE (10:47)
[2024-08-08] MEDS ORDERED: GELSYN-3 IU ONE (10:47)
[2024-08-08] MEDS ORDERED: BUPIVACAINE 0.5% VIAL IJ ONE (10:47)
[2024-08-08] MEDS ORDERED: D50W 50 ml Abboject IV ONE (12:09)
[2024-08-08] MEDS ORDERED: propofoL IV ONE (13:09)
--- NOTE | 2024-08-08 13:53 | XRAY ---
Indication: Right knee injection. Intraoperative fluoroscopy provided for 7 seconds. Single digital spot image submitted for interpretation demonstrates needle tip projecting over right femur intercondylar notch. Small amount of contrast injected for needle tip placement. Correlate with intraoperative findings/report.
--- NOTE | 2024-08-08 13:54 | XRAY ---
7 seconds of fluoroscopy used in surgery for a right intra-articular knee injection.
== END 2024-08-08 13:42 | disposition home or self-care (01) ==
LOC: SDC-PAIN 10:46
PROVIDERS: ATTEND Psychiatry & Neurology Pain Medicine
DX: M17.11 Unilateral primary osteoarthritis, right knee (principal); E11.9 Type 2 diabetes mellitus without complications
CPT/HCPCS: 20610; 73560; 77002; 82947; J2704; J7328; Q9966